=== PATIENT | female | born 1975 | race African-American/Black ===

== ENCOUNTER 2017-07-14 21:33 | Inpatient (IN) | payer OTHER ==
[~2017-07-14] VITALS: Ht 157.5 cm; Wt 69.0 kg
[~2017-07-14 21:33] MED LIST: DAILY VALUE1 EACH PO; LORTAB 5-325 M1 EACH PO; MOTRIN600 MG PO; VITAMIN D31000 UNIT PO
[2017-07-15 07:34] LABS: EOSINOPHIL (%) 4.7 % (0-5); EOSINOPHIL COUNT 0.3 K/uL (0-0.3); HEMATOCRIT 37.4 % (36.0-46.0); IMMATURE GRANULOCYTE (%) 0.2 % (0.0-0.7); INSTRUMENT ABS NEUTROPHIL CT 2.7 K/uL; MCH 27.1 PG (29.0-34.0); MCHC 33.2 G/DL (30.0-36.0); MCV 81.7 FL (83-99); MEAN PLAT.VOLUME 9.8 uM^3 (9.5-12.4); MONOCYTE (%) 5.4 % (3-12); MONOCYTE COUNT 0.3 K/uL (0-0.8); NEUTROPHIL (%) 41.9 % (45-76); NEUTROPHIL COUNT 2.7 K/uL (1.8-6.4); PLATELET COUNT 349 K/uL (156-360); RBC DIS.WIDTH-CV 16.3 % (11.8-14.6); RBC DIS.WIDTH-SD 47.7 % (39-53); RED BLOOD COUNT 4.58 M/uL (3.80-5.20); WHITE BLOOD COUNT 6.3 K/uL (4.1-10.2)
[2017-07-15 07:40] VITALS: BP 135/78
[2017-07-15 07:40] LABS: PROTHROMBIN TIME 11.2 SEC (10.2-12.9)
[2017-07-15 07:42] LABS: PTT 36.5 SEC (25-37)
[2017-07-15 07:51] LABS: ANION GAP 8 MEQ/L (2-14); CHLORIDE 102 MEQ/L (99-109); POTASSIUM 4.9 MEQ/L (3.7-5.4); SAMPLE HEMOLYSIS CHECK 2; SAMPLE ICTERIC CHECK 0; SAMPLE LIPEMIA CHECK 0; SODIUM 136 MEQ/L (136-147); TOTAL BILIRUBIN 0.5 MG/DL (0.0-1.0)
[2017-07-15 07:57] LABS: ALKALINE PHOSPHATASE 103 IU/L (3-129); GFR ESTIMATE (CALCULATED) > 59 mL/min/; GLUCOSE 92 mg/dL (70-99); UREA NITROGEN (BUN) 12 mg/dL (9-23)
[2017-07-15 09:03] LABS: QUANTITATIVE HCG < 4.0 MIU/ML
[2017-07-15 14:08] VITALS: BP 93/56
[2017-07-15 14:51] LABS: EOSINOPHIL (%) 0.2 % (0-5); HEMATOCRIT 28.7 % (36.0-46.0); IMMATURE GRANULOCYTE (%) 0.6 % (0.0-0.7); IMMATURE GRANULOCYTE COUNT 0.1 K/uL; INSTRUMENT ABS NEUTROPHIL CT 13.8 K/uL; LYMPHOCYTE COUNT 1.9 K/uL (1.0-2.8); MCH 27.4 PG (29.0-34.0); MCHC 32.8 G/DL (30.0-36.0); MCV 83.7 FL (83-99); MEAN PLAT.VOLUME 10.1 uM^3 (9.5-12.4); MONOCYTE (%) 3.2 % (3-12); MONOCYTE COUNT 0.5 K/uL (0-0.8); NEUTROPHIL (%) 84.1 % (45-76); NEUTROPHIL COUNT 13.8 K/uL (1.8-6.4); PLATELET COUNT 256 K/uL (156-360); RBC DIS.WIDTH-CV 15.9 % (11.8-14.6); RBC DIS.WIDTH-SD 47.8 % (39-53); RED BLOOD COUNT 3.43 M/uL (3.80-5.20); WHITE BLOOD COUNT 16.4 K/uL (4.1-10.2)
[2017-07-15 19:37] VITALS: BP 95/57
[2017-07-15 23:43] VITALS: BP 126/73
[2017-07-16 04:22] VITALS: BP 108/71
[2017-07-16 07:35] VITALS: BP 105/58
[2017-07-16 08:12] LABS: EOSINOPHIL (%) 0 % (0-5); IMMATURE GRANULOCYTE (%) 0.3 % (0.0-0.7); INSTRUMENT ABS NEUTROPHIL CT 7.1 K/uL; LYMPHOCYTE COUNT 2.5 K/uL (1.0-2.8); MCHC 34.1 G/DL (30.0-36.0); MCV 82.1 FL (83-99); MONOCYTE (%) 7.1 % (3-12); MONOCYTE COUNT 0.7 K/uL (0-0.8); NEUTROPHIL (%) 68.5 % (45-76); NEUTROPHIL COUNT 7.1 K/uL (1.8-6.4); RBC DIS.WIDTH-CV 15.6 % (11.8-14.6); RBC DIS.WIDTH-SD 46.8 % (39-53); WHITE BLOOD COUNT 10.3 K/uL (4.1-10.2)
[2017-07-16 08:22] LABS: RED BLOOD COUNT 2.68 M/uL (3.80-5.20)
[2017-07-16 08:32] LABS: ANION GAP 6 MEQ/L (2-14); CHLORIDE 103 MEQ/L (99-109); GFR ESTIMATE (CALCULATED) > 59 mL/min/; GLUCOSE 91 mg/dL (70-99); POTASSIUM 4.2 MEQ/L (3.7-5.4); SAMPLE HEMOLYSIS CHECK 0; SAMPLE ICTERIC CHECK 0; SAMPLE LIPEMIA CHECK 0; SODIUM 138 MEQ/L (136-147); UREA NITROGEN (BUN) 12 mg/dL (9-23)
[2017-07-16 08:42] LABS: MEAN PLAT.VOLUME 10.1 uM^3 (9.5-12.4)
[2017-07-16 11:30] VITALS: BP 111/68
[2017-07-16 12:34] LABS: PLAT.SUFFICIENCY ADEQUATE
[2017-07-16 15:28] VITALS: BP 109/61
[2017-07-16 17:50] LABS: HEMATOCRIT 21.4 % (36.0-46.0); MCH 28.2 PG (29.0-34.0); MCHC 34.6 G/DL (30.0-36.0); MCV 81.7 FL (83-99); MEAN PLAT.VOLUME 10.4 uM^3 (9.5-12.4); RBC DIS.WIDTH-CV 15.6 % (11.8-14.6); RBC DIS.WIDTH-SD 46.4 % (39-53); RED BLOOD COUNT 2.62 M/uL (3.80-5.20); WHITE BLOOD COUNT 12.5 K/uL (4.1-10.2)
[2017-07-16 18:01] LABS: ANION GAP 5 MEQ/L (2-14); CHLORIDE 100 MEQ/L (99-109); POTASSIUM 4.1 MEQ/L (3.7-5.4); SAMPLE HEMOLYSIS CHECK 0; SAMPLE ICTERIC CHECK 0; SAMPLE LIPEMIA CHECK 0; SODIUM 133 MEQ/L (136-147); TOTAL BILIRUBIN 0.4 MG/DL (0.0-1.0)
[2017-07-16 18:07] LABS: GFR ESTIMATE (CALCULATED) > 59 mL/min/; GLUCOSE 107 mg/dL (70-99); UREA NITROGEN (BUN) 9 mg/dL (9-23)
[2017-07-16 18:19] LABS: PLATELET COUNT 177 K/uL (156-360)
[2017-07-16 18:26] LABS: ALKALINE PHOSPHATASE 51 IU/L (3-129)
[2017-07-16 19:37] LABS: ADD MIUA? YES; BILIRUBIN NEGATIVE; BLOOD LARGE; COLOR PALE YELLOW ((YELLOW)); GLUCOSE (STRIP) NEGATIVE; KETONES NEGATIVE; LEUKOCYTES NEGATIVE; NITRITE NEGATIVE; PROTEIN (STRIP) NEGATIVE; SPECIFIC GRAVITY 1.005 (1.000-1.030); UROBILINOGEN 0.2 MG/DL (0.2-1.0)
[2017-07-16 19:48] LABS: BACTERIA NONE SEEN /HPF; EPITHELIAL CELLS 1+ /HPF; MUCUS NONE SEEN /LPF; RED BLOOD CELLS 20-30 /HPF (0-5); WHITE BLOOD CELLS 0-5 /HPF (0-5)
[2017-07-16 20:27] VITALS: BP 101/58
[2017-07-17 00:01] VITALS: BP 107/59
[2017-07-17 04:23] VITALS: BP 126/74
[2017-07-17 07:18] VITALS: BP 124/66
[2017-07-17] MEDS ORDERED: ENDOCET 5-3251 EACH PO (10:24)
[2017-07-17] MEDS ORDERED: MOTRIN600 MG PO (10:24)
== END 2017-07-17 15:53 | disposition home or self-care (01) | DRG 743 ==
LOC: ENRESERV 21:33 → 2SOUTH 07-15 06:59 → ENRESERV 07-15 13:04 → 2EASTP 07-15 14:03 → 2SOUTH 07-15 14:25 → 2EASTP 07-17 15:53
PROVIDERS: Obstetrics & Gynecology; Obstetrics & Gynecology Gynecology
PROC: 0UB90ZZ Excision of Uterus, Open Approach (ICD-10-PCS; principal; 2017-07-15)
PROC: 30233N1 Transfusion of Nonautologous Red Blood Cells into Peripheral Vein, Percutaneous Approach (ICD-10-PCS; principal; 2017-07-15)
DX: D25.1 Intramural leiomyoma of uterus (principal); R50.9 Fever, unspecified; F20.9 Schizophrenia, unspecified; Z88.2 Allergy status to sulfonamides; Z88.6 Allergy status to analgesic agent
CPT/HCPCS: 80048; 80053; 81003; 84702; 85025; 85025 91; 85027; 85610; 85730; 86850; 86900; 86901; 86920; 88305; J0690; J1100; J1170; J1580; J2405; J2710; J3010; J7050; J7120; P9016; S0028